=== PATIENT | female | born 1995 | race Caucasian/White ===

== ENCOUNTER 2016-11-27 23:14 | Inpatient (IN) | payer BC ==
[~2016-11-27] VITALS: Ht 180.3 cm; Wt 83.6 kg
--- NOTE | ~2016-11-27 | OR ---
PATIENT'S NAME: ASHLI [facility] AGE: 21 Y [address] ROOM: [place] [address] LOCATION: [facility] ADMIT DATE: 11/27/2016 OR/Procedure Report DISCHARGE DATE: FAMILY PHYSICIAN: Nicky Malone MD ATTENDING PHYSICIAN: Marco Sheppard SURGEON: Nicky Malone MD REFRIGERATOR CABINETMAKER: DATE OF PROCEDURE: 11/28/2016 PREOPERATIVE DIAGNOSES: 1. Term . 2. Spontaneous labor. 3. GBS positive. POSTOPERATIVE DIAGNOSES: 1. Term . 2. Spontaneous labor. 3. GBS positive. PROCEDURE IN DETAIL: Ashli is a 21-year-old 2, para 1 female at 38 weeks 2 days who presents in spontaneous labor. She was 7 cm on admission to labor and delivery unit. She progressed normally. She did have an episode of prolonged deceleration lasting about [address] Majano was on the floor and did check on her and ruptured membranes. heart tones returned to normal at that point, and she was rim dilated. When I arrived, she was still had a rim on the right side. We had her switch positions and eventually got to complete. She did not have any anesthesia. She pushed extremely well. Presentation, occiput anterior. Delivery of the head very controlled on the perineum. There was a nuchal cord which was reduced after delivery of the head and the shoulder. Rest of the baby delivered without any difficulty. Baby was placed on mother's abdomen, dried. Cord was clamped and cut by father. Baby was then taken over to the warmer, stimulated, and did require a little bit of blow-by oxygen for less than one minute. scores were 8 and 8 at one and five minutes. Baby is a male weighing 6 pounds 15 ounces. Cord blood was obtained after delivery of the baby. She did receive IV Pitocin after delivery of the baby. Placenta was delivered spontaneously and intact. There were no cervical or vaginal lacerations. There was a superficial tear of the right labia which was not repaired as it was not bleeding. EBL less than 150 mL. Sponge and needle counts were correct. Mother and resting comfortably in the birthing room after delivery. NICKY MALONE MD PATIENT'S NAME: ASHLI [facility] AGE: 21 Y [address] ROOM: [address] [address] LOCATION: [facility] ADMIT DATE: 11/27/2016 OR/Procedure Report DISCHARGE DATE: FAMILY PHYSICIAN: Nicky Malone MD ATTENDING PHYSICIAN: Marco Sheppard/aneesh /[id number] d: 11/28/161020 t: 11/28/162121, OPERATIVE SUMMARY
[2016-11-28] MEDS ORDERED: PRENATAL 1+1)(P1 TAB PO (00:05)
[2016-11-28] MEDS ORDERED: ZOFRAN4 MG PO (00:06)
[2016-11-28] MEDS ORDERED: ZOLOFT25 MG (00:07)
[2016-11-28 00:56] LABS: BASOPHIL % 0.2 %; EOSINOPHIL # 0.1 K/uL (0.0-0.5); EOSINOPHIL % 0.6 %; HEMATOCRIT 36.4 % (33.0-46.0); HEMOGLOBIN 11.9 g/dL (11.0-15.0); IMMATURE GRANULOCYTE # 0.1 K/uL (0.0-0.3); IMMATURE GRANULOCYTE % 0.4 %; LYMPHOCYTE # 2.7 K/uL (0.8-4.0); LYMPHOCYTE % 21.1 %; MCH 29.7 pg (27.0-34.0); MCHC 32.7 gm/dL (32.0-36.5); MCV 90.8 fl (83.0-98.0); MONOCYTE % 7.3 %; MPV 11.8 fl (9.4-12.4); NEUTROPHIL # (ANC) 9.1 K/uL (1.8-7.8); NEUTROPHIL % 70.4 %; NRBC % 0 /100WBC (0-0.00); PLATELET COUNT 221 K/uL (150-450); RBC 4.01 M/uL (3.50-5.00); RDW-CV 13.9 % (11.9-14.6)
[2016-11-28 04:57] LABS: BASOPHIL % 0.2 %; HEMATOCRIT 34.1 % (33.0-46.0); IMMATURE GRANULOCYTE # 0.1 K/uL (0.0-0.3); IMMATURE GRANULOCYTE % 0.5 %; LYMPHOCYTE # 1.6 K/uL (0.8-4.0); LYMPHOCYTE % 7.9 %; MCHC 32.3 gm/dL (32.0-36.5); MONOCYTE # 1.2 K/uL (0.0-1.0); MONOCYTE % 5.9 %; MPV 11.5 fl (9.4-12.4); NEUTROPHIL # (ANC) 16.8 K/uL (1.8-7.8); NEUTROPHIL % 85.5 %; NRBC % 0 /100WBC (0-0.00); PLATELET COUNT 209 K/uL (150-450); RBC 3.79 M/uL (3.50-5.00); RDW-CV 13.8 % (11.9-14.6)
[2016-11-28 05:04] LABS: WBC 19.7 K/uL (4.0-11.0)
--- NOTE | 2016-11-28 05:33 | NUR ---
VSS. HAS BEEN UP AND SHOWERED, VOIDING WITHOUT DIFFICULTY. LAST HAD 1 PERCOCET AT 0119, STATES SHE IS FEELING VERY WELL NOW. FUNDUS FIRM, AT THE UMBILICUS, SMALL FLOW. TEAPAD TO PERINEUM. WAS GBS POSITIVE, DID NOT RECEIVE ABX BEFORE DELIVERY.
--- NOTE | 2016-11-29 04:07 | NUR ---
VSS, fundus firm, midline, small flow, Last Motrin at 1600
--- NOTE | 2016-11-30 04:14 | NUR ---
VSS, FUNDUS FIRM, AT UMBILICUS, SMALL FLOW. PT UP AD REBECCA AND INDEPENDENT WITH CARES. NO PAIN MEDS GIVEN. VIDEO SHEET AND CERTIFICATE AT BEDSIDE.
== END 2016-11-30 13:20 | disposition disaster alternative care site (69) | DRG 775 ==
LOC: GOBS 23:14
PROVIDERS: Family Medicine; ADMIT Family Medicine
PROC: 10E0XZZ Delivery of Products of Conception, External Approach (ICD-10-PCS; principal; 2016-11-28)
PROC: 10907ZC Drainage of Amniotic Fluid, Therapeutic from Products of Conception, Via Natural or Artificial Opening (ICD-10-PCS; principal; 2016-11-28)
DX: O99.824 Streptococcus B carrier state complicating childbirth (principal); O76 Abnormality in fetal heart rate and rhythm complicating labor and delivery; O70.0 First degree perineal laceration during delivery; O69.81X0 Labor and delivery complicated by cord around neck, without compression, not applicable or unspecified; Z3A.39 39 weeks gestation of pregnancy; Z37.0 Single live birth
CPT/HCPCS: J2540; J2590; J7120